=== PATIENT | male | born 1960 | race Caucasian/White ===

== ENCOUNTER 2017-12-28 20:52 | Inpatient (IN) | payer OTHER ==
[~2017-12-28] VITALS: Ht 177.8 cm; Wt 82.0 kg
[~2017-12-28 20:52] MED LIST: TRAMADOL HCL50 MG PO
[2017-12-28 21:53] LABS: INTER. NORMALIZED RATIO 1.3
[2017-12-28 21:54] LABS: CHLORIDE 102 mEq/L (99-109); POTASSIUM 3.9 mEq/L (3.7-5.4); SODIUM 135 mEq/L (136-147)
[2017-12-28 21:55] LABS: MAGNESIUM 1.2 mg/dL (1.3-2.7)
[2017-12-28 21:56] LABS: GLUCOSE 113 mg/dL (70-99)
[2017-12-28 22:00] LABS: CREATININE 1.4 mg/dL (0.6-1.3); GFR ESTIMATE (CALCULATED) 55 mL/min/ (58.99-99999)
[2017-12-28 22:01] LABS: UREA NITROGEN (BUN) 21 mg/dL (9-23)
[2017-12-28 22:08] LABS: TROP-I INTERPRETATION NEGATIVE; TROPONIN-I 0.02 ng/mL (0.0-0.30)
[2017-12-28 22:48] LABS: ABS NEUTROPHIL COUNT 6.9; ANISOCYTOSIS 1+; ATYPICAL LYMPHOCYTE 2.6 %; BAND NEUTROPHILS 42.1 % (0-8.0); EOSINOPHIL ABS CT 0; HEMATOCRIT 47.7 % (38.0-50.0); HEMATOLOGY COMMENT 1 SN; HEMOGLOBIN 16.6 G/DL (12.5-16.6); LYMPHOCYTES 0.9 % (15.0-45.0); MCH 32.5 PG (29.0-34.0); MCHC 34.8 G/DL (30.0-36.0); MCV 93.5 FL (86-99); MICROCYTOSIS 1+; MONOCYTES 14.9 % (0-9.0); PLAT.SUFFICIENCY DECREASED; PLATELET COUNT 127 K/uL (156-360); POLYCHROMASIA 1+; RBC DIS.WIDTH-CV 13.2 % (11.8-14.6); RBC DIS.WIDTH-SD 45.1 % (39-53); SEG.NEUTROPHILS 39.5 % (46.0-76.0); WHITE BLOOD COUNT 8.5 K/uL (4.1-10.2)
[2017-12-28] MEDS ORDERED: IBUPROFEN800 MG PO (23:17)
[2017-12-28] MEDS ORDERED: TUDORZA PRESS400 MCG IH (23:18)
[2017-12-28] MEDS ORDERED: FLONASE16 G1 BOTH NARES (23:18)
[2017-12-28] MEDS ORDERED: THERAFLU FLU &1 EAC1 PO (23:18)
[2017-12-28] MEDS ORDERED: VENTOLIN HFA18 GM IH (23:18)
[2017-12-28] MEDS ORDERED: ADVAIR 500/501 DISK IH (23:18)
[2017-12-28] MEDS ORDERED: TAB-A-VITE1 EACH PO (23:19)
[2017-12-29] VITALS (28 sets, daily range): BP systolic 0–138; BP diastolic 0–86
[2017-12-29 00:42] LABS: BICARBONATE 16.3 mEq/L (22-26); CARBOXY HGB 2.4 % (0-5); COMMENTS - BLOOD GASES A+C+; DEVICE MASK VENT; FI02 100 %; METHEMOGLOBIN 0.9 % (0-1.5); PCO2 59 mm Hg (35-45); PO2 262 mm Hg (80-100); PRES. SUPPORT 15 CM/H2O; SITE RR; TOTAL RESP RATE 30 resp/min; pH 7.05 (7.35-7.45)
[2017-12-29 00:43] LABS: PEEP 5 CM/H20
[2017-12-29 01:32] LABS: APPEARANCE CLEAR ((CLEAR)); BILIRUBIN NEGATIVE; BLOOD SMALL; COLOR YELLOW ((YELLOW)); GLUCOSE (STRIP) NEGATIVE; KETONES 5; LEUKOCYTES NEGATIVE; NITRITE NEGATIVE; PROTEIN (STRIP) 30; SPECIFIC GRAVITY 1.011 (1.000-1.030); UROBILINOGEN 0.2 MG/DL (0.2-1.0)
[2017-12-29 01:40] LABS: BACTERIA NONE SEEN /HPF; EPITHELIAL CELLS RARE /HPF; MUCUS TRACE /LPF; RED BLOOD CELLS 0-5 /HPF (0-5); UCUL ADDED? NO; WHITE BLOOD CELLS 0-5 /HPF (0-5)
[2017-12-29 01:57] LABS: BASE EXCESS -13.7 mEq/L (-3 to +3); CARBOXY HGB 2.2 % (0-5); METHEMOGLOBIN 0.9 % (0-1.5)
[2017-12-29 01:58] LABS: COMMENTS - BLOOD GASES A+C+; DEVICE 840 VENT; FI02 60 %; MECHANICAL RATE 14 resp/min; MODE AC; PCO2 65 mm Hg (35-45); PO2 82 mm Hg (80-100); SITE RR; TOTAL RESP RATE 14 resp/min; pH 7.05 (7.35-7.45)
[2017-12-29 01:59] LABS: PEEP 5 CM/H20; TIDAL VOLUME 500 ML
[2017-12-29 04:18] LABS: BASE EXCESS -12.8 mEq/L (-3 to +3); BICARBONATE 18.5 mEq/L (22-26); CARBOXY HGB 2.6 % (0-5); METHEMOGLOBIN 1.5 % (0-1.5); PCO2 64 mm Hg (35-45); PO2 78 mm Hg (80-100)
[2017-12-29 04:19] LABS: COMMENTS - BLOOD GASES C+; DEVICE VENT; FI02 60 %; MECHANICAL RATE 18 resp/min; MODE AC; PEEP 5 CM/H20; SITE LR; TIDAL VOLUME 550 ML; TOTAL RESP RATE 18 resp/min; pH 7.07 (7.35-7.45)
[2017-12-29 05:31] LABS: BASE EXCESS -11.4 mEq/L (-3 to +3); BICARBONATE 17.1 mEq/L (22-26); CARBOXY HGB 2.6 % (0-5); COMMENTS - BLOOD GASES C+; DEVICE VENT; FI02 60 %; MECHANICAL RATE 24 resp/min; METHEMOGLOBIN 1.3 % (0-1.5); MODE AC; PCO2 47 mm Hg (35-45); PEEP 5 CM/H20; PO2 99 mm Hg (80-100); SITE LR; TIDAL VOLUME 550 ML; TOTAL RESP RATE 24 resp/min; pH 7.17 (7.35-7.45)
[2017-12-29 06:07] LABS: CHLORIDE 108 MEQ/L (99-109); GFR ESTIMATE (CALCULATED) > 59 mL/min/ (58.99-99999); GLUCOSE 139 mg/dL (70-99); SODIUM 134 MEQ/L (136-147); TRIGLYCERIDES 141 MG/DL (Normal: <150); UREA NITROGEN (BUN) 17 mg/dL (9-23)
[2017-12-29 06:08] LABS: POTASSIUM 4.9 MEQ/L (3.7-5.4)
[2017-12-29 06:32] LABS: BASE EXCESS -11.5 mEq/L (-3 to +3); BICARBONATE 16.4 mEq/L (22-26); CARBOXY HGB 2.4 % (0-5); METHEMOGLOBIN 1.3 % (0-1.5); PCO2 43 mm Hg (35-45); PO2 148 mm Hg (80-100); SITE LR; pH 7.19 (7.35-7.45)
[2017-12-29 06:33] LABS: COMMENTS - BLOOD GASES C+; DEVICE VENT; FI02 60 %; MECHANICAL RATE 24 resp/min; MODE AC; PEEP 5 CM/H20; TIDAL VOLUME 550 ML; TOTAL RESP RATE 24 resp/min
[2017-12-29 08:49] LABS: ALBUMIN 2.9 G/DL (3.2-4.8); ALKALINE PHOSPHATASE 38 IU/L (3-129); ALT (GPT) 16 IU/L (3-49); AST (GOT) 18 IU/L (2-34); CHLORIDE 106 MEQ/L (99-109); CREATININE 0.9 MG/DL (0.6-1.3); GFR ESTIMATE (CALCULATED) > 59 mL/min/ (58.99-99999); GLUCOSE 141 mg/dL (70-99); POTASSIUM 5.3 MEQ/L (3.7-5.4); SODIUM 132 MEQ/L (136-147); TOTAL BILIRUBIN 3.1 MG/DL (0.0-1.0); TOTAL PROTEIN 4.9 G/DL (6.4-8.3); UREA NITROGEN (BUN) 18 mg/dL (9-23)
[2017-12-30] VITALS (23 sets, daily range): BP systolic 83–143; BP diastolic 53–71
[2017-12-30 08:13] LABS: CHLORIDE 107 MEQ/L (99-109); MAGNESIUM 1.7 mg/dl (1.3-2.7); POTASSIUM 4.4 MEQ/L (3.7-5.4); SODIUM 136 MEQ/L (136-147)
[2017-12-30 08:19] LABS: CREATININE 0.7 MG/DL (0.6-1.3); GFR ESTIMATE (CALCULATED) > 59 mL/min/ (58.99-99999); GLUCOSE 130 mg/dL (70-99); UREA NITROGEN (BUN) 13 mg/dL (9-23)
[2017-12-30 08:28] LABS: HEMATOCRIT 41.5 % (38.0-50.0); MCH 31.9 PG (29.0-34.0); MCHC 34.2 G/DL (30.0-36.0); MCV 93.3 FL (86-99); PLATELET COUNT 114 K/uL (156-360); RBC DIS.WIDTH-CV 13.5 % (11.8-14.6); RBC DIS.WIDTH-SD 46.5 % (39-53); RED BLOOD COUNT 4.45 M/uL (4.00-5.50); WHITE BLOOD COUNT 7.5 K/uL (4.1-10.2)
[2017-12-30 08:31] LABS: HEMOGLOBIN 14.2 G/DL (12.5-16.6)
[2017-12-31] VITALS (20 sets, daily range): BP systolic 80–121; BP diastolic 55–78
[2017-12-31 08:29] LABS: HEMATOCRIT 38.8 % (38.0-50.0); HEMOGLOBIN 13.5 G/DL (12.5-16.6); MCH 32.7 PG (29.0-34.0); MCHC 34.8 G/DL (30.0-36.0); MCV 93.9 FL (86-99); PLATELET COUNT 103 K/uL (156-360); RBC DIS.WIDTH-CV 13.7 % (11.8-14.6); RBC DIS.WIDTH-SD 47.1 % (39-53); RED BLOOD COUNT 4.13 M/uL (4.00-5.50); WHITE BLOOD COUNT 11.2 K/uL (4.1-10.2)
[2017-12-31 09:00] LABS: CHLORIDE 104 MEQ/L (99-109); CREATININE 0.6 MG/DL (0.6-1.3); GFR ESTIMATE (CALCULATED) > 59 mL/min/ (58.99-99999); GLUCOSE 115 mg/dL (70-99); POTASSIUM 3.6 MEQ/L (3.7-5.4); SODIUM 138 MEQ/L (136-147); UREA NITROGEN (BUN) 9 mg/dL (9-23)
[2017-12-31 09:10] LABS: ABS NEUTROPHIL COUNT 9.1; ATYPICAL LYMPHOCYTE 1.8 %; BAND NEUTROPHILS 8.9 % (0-8.0); EOSINOPHIL ABS CT 0; LYMPHOCYTES 4.5 % (15.0-45.0); METAMYELOCYTES 2.7 %; MONOCYTES 9.8 % (0-9.0); PLAT.SUFFICIENCY DECREASED; SEG.NEUTROPHILS 72.3 % (46.0-76.0)
[2018-01-01] VITALS (23 sets, daily range): BP systolic 86–129; BP diastolic 57–78
[2018-01-01 11:43] LABS: ALKALINE PHOSPHATASE 56 IU/L (3-129); CHLORIDE 104 MEQ/L (99-109); CREATININE 0.6 MG/DL (0.6-1.3); GFR ESTIMATE (CALCULATED) > 59 mL/min/ (58.99-99999); GLUCOSE 101 mg/dL (70-99); POTASSIUM 3.9 MEQ/L (3.7-5.4); SODIUM 138 MEQ/L (136-147); UREA NITROGEN (BUN) 10 mg/dL (9-23)
[2018-01-01 11:45] LABS: ALT (GPT) 34 IU/L (3-49); AST (GOT) 35 IU/L (2-34); TOTAL BILIRUBIN 5.8 MG/DL (0.0-1.0); TOTAL PROTEIN 3.7 G/DL (6.4-8.3)
[2018-01-02] VITALS (20 sets, daily range): BP systolic 85–147; BP diastolic 53–91
[2018-01-02 08:57] LABS: CARBOXY HGB 2.2 % (0-5); METHEMOGLOBIN 1.4 % (0-1.5); PCO2 63 mm Hg (35-45); PO2 136 mm Hg (80-100); pH 7.34 (7.35-7.45)
[2018-01-02 08:58] LABS: COMMENTS - BLOOD GASES A+C+; DEVICE 840; FI02 100 %; MECHANICAL RATE 18 resp/min; MODE AC; SITE RR; TIDAL VOLUME 400 ML; TOTAL RESP RATE 20 resp/min
[2018-01-02 10:50] LABS: BASOPHIL (%) 0.2 % (0-1); EOSINOPHIL (%) 0 % (0-5); HEMATOCRIT 37.8 % (38.0-50.0); HEMOGLOBIN 12.7 G/DL (12.5-16.6); IMMATURE GRANULOCYTE (%) 1.8 % (0.0-0.7); LYMPHOCYTE (%) 4.2 % (15-42); LYMPHOCYTE COUNT 0.4 K/uL (1.0-2.8); MCH 31.9 PG (29.0-34.0); MCHC 33.6 G/DL (30.0-36.0); MONOCYTE (%) 5.8 % (3-12); MONOCYTE COUNT 0.5 K/uL (0-0.8); NEUTROPHIL COUNT 7.9 K/uL (1.8-6.4); PLATELET COUNT 108 K/uL (156-360); RBC DIS.WIDTH-CV 14.2 % (11.8-14.6); RBC DIS.WIDTH-SD 50.1 % (39-53); RED BLOOD COUNT 3.98 M/uL (4.00-5.50)
[2018-01-02 11:20] LABS: ALBUMIN 2.1 G/DL (3.2-4.8); ALKALINE PHOSPHATASE 58 IU/L (3-129); ALT (GPT) 33 IU/L (3-49); AST (GOT) 24 IU/L (2-34); CHLORIDE 103 MEQ/L (99-109); CREATININE 0.6 MG/DL (0.6-1.3); GFR ESTIMATE (CALCULATED) > 59 mL/min/ (58.99-99999); GLUCOSE 136 mg/dL (70-99); POTASSIUM 4.7 MEQ/L (3.7-5.4); SODIUM 140 MEQ/L (136-147); TOTAL BILIRUBIN 4.9 MG/DL (0.0-1.0); TOTAL PROTEIN 4.2 G/DL (6.4-8.3); UREA NITROGEN (BUN) 17 mg/dL (9-23)
[2018-01-03] VITALS (25 sets, daily range): BP systolic 97–164; BP diastolic 55–117
[2018-01-04] VITALS (23 sets, daily range): BP systolic 102–146; BP diastolic 53–83
[2018-01-04 12:47] LABS: BASOPHIL (%) 0.2 % (0-1); EOSINOPHIL (%) 0 % (0-5); HEMATOCRIT 39.7 % (38.0-50.0); HEMOGLOBIN 13.1 G/DL (12.5-16.6); IMMATURE GRANULOCYTE (%) 1.5 % (0.0-0.7); LYMPHOCYTE (%) 5.8 % (15-42); LYMPHOCYTE COUNT 0.5 K/uL (1.0-2.8); MCV 97.1 FL (86-99); MONOCYTE (%) 5.2 % (3-12); MONOCYTE COUNT 0.5 K/uL (0-0.8); NEUTROPHIL (%) 87.3 % (45-76); NEUTROPHIL COUNT 7.5 K/uL (1.8-6.4); RBC DIS.WIDTH-CV 14.6 % (11.8-14.6); RBC DIS.WIDTH-SD 52.9 % (39-53); RED BLOOD COUNT 4.09 M/uL (4.00-5.50); WHITE BLOOD COUNT 8.6 K/uL (4.1-10.2)
[2018-01-04 12:51] LABS: PLATELET COUNT 163 K/uL (156-360)
[2018-01-04 12:59] LABS: ALBUMIN 2.5 g/dL (3.2-4.8)
[2018-01-04 13:00] LABS: CHLORIDE 104 mEq/L (99-109); POTASSIUM 4.8 mEq/L (3.7-5.4); SODIUM 144 mEq/L (136-147)
[2018-01-04 13:02] LABS: GLUCOSE 166 mg/dL (70-99); TOTAL PROTEIN 4.4 g/dL (6.4-8.3)
[2018-01-04 13:04] LABS: TOTAL BILIRUBIN 2.3 mg/dL (0.0-1.0)
[2018-01-04 13:05] LABS: ALKALINE PHOSPHATASE 99 IU/L (3-129)
[2018-01-04 13:06] LABS: CREATININE 0.6 mg/dL (0.6-1.3); GFR ESTIMATE (CALCULATED) > 59 mL/min/ (58.99-99999)
[2018-01-04 13:07] LABS: AST (GOT) 19 IU/L (2-34)
[2018-01-04 13:08] LABS: ALT (GPT) 32 IU/L (3-49)
[2018-01-04 13:25] LABS: UREA NITROGEN (BUN) 29 mg/dL (9-23)
[2018-01-05] VITALS (23 sets, daily range): BP systolic 108–164; BP diastolic 55–106
[2018-01-05 10:37] LABS: BASOPHIL (%) 0.2 % (0-1); EOSINOPHIL (%) 0 % (0-5); HEMATOCRIT 40.3 % (38.0-50.0); IMMATURE GRANULOCYTE (%) 0.9 % (0.0-0.7); LYMPHOCYTE (%) 9.1 % (15-42); MCH 31.7 PG (29.0-34.0); MCHC 32.3 G/DL (30.0-36.0); MCV 98.3 FL (86-99); MONOCYTE (%) 5.8 % (3-12); MONOCYTE COUNT 0.6 K/uL (0-0.8); NEUTROPHIL COUNT 8.8 K/uL (1.8-6.4); PLATELET COUNT 178 K/uL (156-360); RBC DIS.WIDTH-CV 14.8 % (11.8-14.6); RBC DIS.WIDTH-SD 53.7 % (39-53); WHITE BLOOD COUNT 10.5 K/uL (4.1-10.2)
[2018-01-05 11:02] LABS: CHLORIDE 105 MEQ/L (99-109); POTASSIUM 4.5 MEQ/L (3.7-5.4); SODIUM 145 MEQ/L (136-147)
[2018-01-05 11:13] LABS: CREATININE 0.5 MG/DL (0.6-1.3); GFR ESTIMATE (CALCULATED) > 59 mL/min/ (58.99-99999); GLUCOSE 140 mg/dL (70-99); UREA NITROGEN (BUN) 27 mg/dL (9-23)
[2018-01-06] VITALS (26 sets, daily range): BP systolic 101–180; BP diastolic 52–104
[2018-01-07] VITALS (24 sets, daily range): BP systolic 129–169; BP diastolic 65–100
[2018-01-07 13:09] LABS: BASE EXCESS 8.2 mEq/L (-3 to +3); CARBOXY HGB 3.5 % (0-5); COMMENTS - BLOOD GASES A+C+; DEVICE 840 PB; METHEMOGLOBIN 1.6 % (0-1.5); PCO2 50 mm Hg (35-45); PO2 80 mm Hg (80-100); SITE RR; pH 7.44 (7.35-7.45)
[2018-01-07 13:10] LABS: FI02 40 %; MODE SPONT; PEEP 5 CM/H20; PRES. SUPPORT 15 CM/H2O; TOTAL RESP RATE 26 resp/min
[2018-01-08] VITALS (24 sets, daily range): BP systolic 114–189; BP diastolic 69–88
[2018-01-09] VITALS (19 sets, daily range): BP systolic 0–156; BP diastolic 0–90
[2018-01-09 05:25] LABS: HEMATOCRIT 42.7 % (38.0-50.0); HEMOGLOBIN 14.2 G/DL (12.5-16.6); MCH 31.3 PG (29.0-34.0); MCHC 33.3 G/DL (30.0-36.0); MCV 94.3 FL (86-99); PLATELET COUNT 266 K/uL (156-360); RBC DIS.WIDTH-CV 14.1 % (11.8-14.6); RBC DIS.WIDTH-SD 48.9 % (39-53); RED BLOOD COUNT 4.53 M/uL (4.00-5.50); WHITE BLOOD COUNT 11.5 K/uL (4.1-10.2)
[2018-01-09 05:52] LABS: ALBUMIN 2.7 G/DL (3.2-4.8); ALKALINE PHOSPHATASE 101 IU/L (3-129); ALT (GPT) 36 IU/L (3-49); AST (GOT) 23 IU/L (2-34); CHLORIDE 100 MEQ/L (99-109); CREATININE 0.4 MG/DL (0.6-1.3); GFR ESTIMATE (CALCULATED) > 59 mL/min/ (58.99-99999); GLUCOSE 108 mg/dL (70-99); SODIUM 136 MEQ/L (136-147); TOTAL BILIRUBIN 2.8 MG/DL (0.0-1.0); UREA NITROGEN (BUN) 20 mg/dL (9-23)
[2018-01-10] VITALS (15 sets, daily range): BP systolic 135–172; BP diastolic 73–99
[2018-01-11] VITALS (16 sets, daily range): BP systolic 0–156; BP diastolic 0–96
[2018-01-11 02:17] LABS: C DIFF TOXIN NEGATIVE (NEGATIVE)
[2018-01-11 11:43] LABS: BASOPHIL (%) 0.1 % (0-1); EOSINOPHIL (%) 0.1 % (0-5); HEMATOCRIT 43.5 % (38.0-50.0); HEMOGLOBIN 14.9 G/DL (12.5-16.6); IMMATURE GRANULOCYTE (%) 0.5 % (0.0-0.7); LYMPHOCYTE (%) 2.2 % (15-42); LYMPHOCYTE COUNT 0.4 K/uL (1.0-2.8); MCH 32.6 PG (29.0-34.0); MCHC 34.3 G/DL (30.0-36.0); MCV 95.2 FL (86-99); MONOCYTE (%) 5.4 % (3-12); MONOCYTE COUNT 0.9 K/uL (0-0.8); NEUTROPHIL (%) 91.7 % (45-76); NEUTROPHIL COUNT 15.5 K/uL (1.8-6.4); RBC DIS.WIDTH-CV 14.6 % (11.8-14.6); RBC DIS.WIDTH-SD 50.5 % (39-53); RED BLOOD COUNT 4.57 M/uL (4.00-5.50); WHITE BLOOD COUNT 16.9 K/uL (4.1-10.2)
[2018-01-11 11:44] LABS: PLATELET COUNT 349 K/uL (156-360)
[2018-01-11 12:11] LABS: CHLORIDE 99 MEQ/L (99-109); CREATININE 0.4 MG/DL (0.6-1.3); GFR ESTIMATE (CALCULATED) > 59 mL/min/ (58.99-99999); GLUCOSE 90 mg/dL (70-99); POTASSIUM 3.9 MEQ/L (3.7-5.4); SODIUM 139 MEQ/L (136-147); UREA NITROGEN (BUN) 15 mg/dL (9-23)
[2018-01-11 12:54] LABS: HDL CHOLESTEROL 36 MG/DL (Desirable>=40); LDL CHOLESTEROL 231 mg/dL (Desirable<100); NON-HDL CHOLESTEROL 260 mg/dL (Desirable<160); TOTAL CHOLESTEROL 296 mg/dL (Desirable<200); TRIGLYCERIDES 144 MG/DL (Normal: <150)
[2018-01-12] VITALS (24 sets, daily range): BP systolic 112–160; BP diastolic 51–107
[2018-01-12 10:14] LABS: BASOPHIL (%) 0.1 % (0-1); EOSINOPHIL (%) 0.2 % (0-5); HEMOGLOBIN 14.2 G/DL (12.5-16.6); IMMATURE GRANULOCYTE (%) 0.6 % (0.0-0.7); LYMPHOCYTE (%) 3.8 % (15-42); LYMPHOCYTE COUNT 0.7 K/uL (1.0-2.8); MCH 31.5 PG (29.0-34.0); MCHC 33.8 G/DL (30.0-36.0); MCV 93.1 FL (86-99); MONOCYTE (%) 5.7 % (3-12); NEUTROPHIL (%) 89.6 % (45-76); NEUTROPHIL COUNT 16.3 K/uL (1.8-6.4); PLATELET COUNT 352 K/uL (156-360); RBC DIS.WIDTH-CV 14.4 % (11.8-14.6); RBC DIS.WIDTH-SD 49.4 % (39-53); RED BLOOD COUNT 4.51 M/uL (4.00-5.50); WHITE BLOOD COUNT 18.2 K/uL (4.1-10.2)
[2018-01-12 10:24] LABS: CHLORIDE 103 MEQ/L (99-109); POTASSIUM 3.4 MEQ/L (3.7-5.4); SODIUM 137 MEQ/L (136-147)
[2018-01-12 10:29] LABS: CREATININE 0.3 MG/DL (0.6-1.3); GFR ESTIMATE (CALCULATED) > 59 mL/min/ (58.99-99999); GLUCOSE 85 mg/dL (70-99); UREA NITROGEN (BUN) 12 mg/dL (9-23)
[2018-01-13] VITALS (16 sets, daily range): BP systolic 120–148; BP diastolic 68–99
[2018-01-13 07:27] LABS: BASOPHIL (%) 0.1 % (0-1); EOSINOPHIL (%) 0.4 % (0-5); EOSINOPHIL COUNT 0.1 K/uL (0-0.3); HEMATOCRIT 40.3 % (38.0-50.0); HEMOGLOBIN 13.4 G/DL (12.5-16.6); IMMATURE GRANULOCYTE (%) 0.6 % (0.0-0.7); LYMPHOCYTE COUNT 1.2 K/uL (1.0-2.8); MCH 31.4 PG (29.0-34.0); MCHC 33.3 G/DL (30.0-36.0); MCV 94.4 FL (86-99); MONOCYTE (%) 8.1 % (3-12); MONOCYTE COUNT 1.4 K/uL (0-0.8); NEUTROPHIL (%) 83.8 % (45-76); NEUTROPHIL COUNT 14.2 K/uL (1.8-6.4); PLATELET COUNT 314 K/uL (156-360); RBC DIS.WIDTH-CV 14.5 % (11.8-14.6); RBC DIS.WIDTH-SD 49.7 % (39-53); RED BLOOD COUNT 4.27 M/uL (4.00-5.50)
[2018-01-13 07:45] LABS: CHLORIDE 103 MEQ/L (99-109); MAGNESIUM 1.9 mg/dl (1.3-2.7); POTASSIUM 3.8 MEQ/L (3.7-5.4); SODIUM 138 MEQ/L (136-147)
[2018-01-13 07:50] LABS: CREATININE 0.4 MG/DL (0.6-1.3); GFR ESTIMATE (CALCULATED) > 59 mL/min/ (58.99-99999); GLUCOSE 86 mg/dL (70-99); PHOSPHORUS 2.5 mg/dL (2.5-4.9); UREA NITROGEN (BUN) 11 mg/dL (9-23)
[2018-01-13 09:04] LABS: HEMOGLOBIN A1c (GLYCOHEMOGLOB) 5.5 % (Below 5.7)
[2018-01-14 00:38] VITALS: BP 139/71
[2018-01-14 08:30] VITALS: BP 133/71
[2018-01-14 23:58] VITALS: BP 149/86
[2018-01-15 06:10] LABS: HEMATOCRIT 39.4 % (38.0-50.0); HEMOGLOBIN 13.5 G/DL (12.5-16.6); MCH 32.5 PG (29.0-34.0); MCHC 34.3 G/DL (30.0-36.0); MCV 94.7 FL (86-99); PLATELET COUNT 284 K/uL (156-360); RBC DIS.WIDTH-CV 14.5 % (11.8-14.6); RBC DIS.WIDTH-SD 49.3 % (39-53); RED BLOOD COUNT 4.16 M/uL (4.00-5.50); WHITE BLOOD COUNT 12.1 K/uL (4.1-10.2)
[2018-01-15 07:58] VITALS: BP 140/78
[2018-01-15 15:59] VITALS: BP 136/78
[2018-01-16] VITALS: BP 135/70
[2018-01-16 04:00] VITALS: BP 123/74
[2018-01-16 08:33] VITALS: BP 130/78
[2018-01-16] MEDS ORDERED: CLOPIDOGREL75 MG PO (11:11)
[2018-01-16] MEDS ORDERED: ATORVASTATIN CA40 MG PO (11:11)
[2018-01-16] MEDS ORDERED: LISINOPRIL2.5 MG PO (11:11)
[2018-01-16] MEDS ORDERED: ASPIRIN EC325 MG PO (11:11)
[2018-01-16 11:12] VITALS: BP 122/70
[2018-01-16] MEDS ORDERED: MUCINEX600 MG PO (11:12)
[2018-01-16] MEDS ORDERED: PREDNISONE20 MG PO (11:12)
[2018-01-16 15:07] VITALS: BP 118/64
== END 2018-01-16 18:21 | DRG 870 ==
LOC: EME → EDBD 20:52 → EME 20:52 → EDOF 12-29 02:02 → 4WEST 12-29 02:02 → ENRESERV 12-29 02:03 → 4WEST 12-29 03:24 → ENRESERV 01-13 12:03 → 5SOUTH 01-13 19:02
PROVIDERS: Emergency Medicine; Internal Medicine; Internal Medicine Critical Care Medicine; Internal Medicine Pulmonary Disease; Obstetrics & Gynecology; Physician Assistant Medical; Surgery
PROC: 05HN33Z Insertion of Infusion Device into Left Internal Jugular Vein, Percutaneous Approach (ICD-10-PCS; principal; 2017-12-29)
PROC: 0BH17EZ Insertion of Endotracheal Airway into Trachea, Via Natural or Artificial Opening (ICD-10-PCS; principal; 2017-12-29)
PROC: 5A1955Z Respiratory Ventilation, Greater than 96 Consecutive Hours (ICD-10-PCS; principal; 2017-12-29)
DX: A41.9 Sepsis, unspecified organism (principal); R65.21 Severe sepsis with septic shock; J15.212 Pneumonia due to Methicillin resistant Staphylococcus aureus; J44.0 Chronic obstructive pulmonary disease with (acute) lower respiratory infection; J96.22 Acute and chronic respiratory failure with hypercapnia; J96.21 Acute and chronic respiratory failure with hypoxia; J44.1 Chronic obstructive pulmonary disease with (acute) exacerbation; I63.40 Cerebral infarction due to embolism of unspecified cerebral artery; G83.21 Monoplegia of upper limb affecting right dominant side; J85.0 Gangrene and necrosis of lung; E87.4 Mixed disorder of acid-base balance; I95.89 Other hypotension; E83.42 Hypomagnesemia; G62.9 Polyneuropathy, unspecified; Z66 Do not resuscitate; I10 Essential (primary) hypertension; I25.10 Atherosclerotic heart disease of native coronary artery without angina pectoris; I25.2 Old myocardial infarction; F17.200 Nicotine dependence, unspecified, uncomplicated
CPT/HCPCS: 31720; 36600; 70450; 70544; 70547; 70551; 71045; 71275; 76705; 80048; 80053; 80061; 80202; 81003; 82803; 82948; 83036; 83605; 83735; 84100; 84478; 84484; 85025; 85027; 85610; 85730; 87040; 87070; 87077; 87147; 87186; 87205; 87449; 87493; 87502; 87641; 90686; 92526 GN; 92610 GN; 92950; 93005; 93971; 94002; 94003; 94640; 94640 76; 94667; 94668; 94760; 94799; 97530 GO; 97530 GP; 99202; 99281; 99285; C1751; C8923; J0456; J0692; J1100; J1650; J1956; J2020; J2543; J2704; J2920; J2930; J3010; J3370; J3475; J7030; J7050; J7120; J7512; J7608; S0028